=== PATIENT | female | born 1950 | race Caucasian/White ===

== ENCOUNTER → 2016-11-12 | Outpatient (CLI) | payer MEDICARE, BC | LOC: MC.RAD 08:47 | DX: Z12.31 Encounter for screening mammogram for malignant neoplasm of breast (principal); N63 Unspecified lump in breast ==

== ENCOUNTER → 2016-11-14 | Outpatient (CLI) | payer MEDICARE, BC | LOC: MC.RAD 09:45 | DX: N63 Unspecified lump in breast (principal) ==

== ENCOUNTER → 2017-05-26 | Outpatient (CLI) | payer MEDICARE, BC | LOC: MC.RAD 08:30 | DX: N63.20 Unspecified lump in the left breast, unspecified quadrant (principal); N60.02 Solitary cyst of left breast ==

== ENCOUNTER → 2018-03-02 | Outpatient (CLI) | payer MEDICARE, BC | LOC: COL.RAD 13:27 | DX: M18.12 Unilateral primary osteoarthritis of first carpometacarpal joint, left hand (principal) ==

== ENCOUNTER 2019-05-11 10:00 | Outpatient (RCR) | payer MEDICARE, BC ==
[~2019-05-11 10:00] MED LIST: ASPIRIN 81M81 MG/TA2 PO; BENTYL 20MG20 MG/TAB PO; DIOVAN/HCT 12.51 TA1 PO; ISOPTIN SR240 MG PO; LEXAPRO 10MG10 MG PO; PREMARIN0.45 MG PO; QUESTRAN4 GM/9 GM PO; ZOCOR 20MG20 MG PO
== END 2019-05-19 13:27 | disposition home or self-care (01) ==
LOC: WSPT 10:00
DX: G57.01 Lesion of sciatic nerve, right lower limb (principal)

== ENCOUNTER 2019-12-17 11:37 | Outpatient (RCR) | payer MEDICARE, BC ==
[~2019-12-17 11:37] MED LIST changes: +ALBUTEROL0.83 MG/ML; +LEVAQUIN 5500 MG/TA1 PO; +PREDNISONE20 MG PO; +PRILOTC PO; +PROVENTIL0.09 MG/A1 IH; +WELLBUTRIN XL300 M1 PO
== END 2019-12-26 | disposition home or self-care (01) ==
LOC: COL.CR
DX: I21.4 Non-ST elevation (NSTEMI) myocardial infarction (principal)

== ENCOUNTER 2020-07-01 14:51 | Emergency (ER) | payer MEDICARE, BC ==
[~2020-07-01] VITALS: Ht 162.6 cm; Wt 72.7 kg
[2020-07-01 15:13] VITALS: TEMP 98.3
[2020-07-01 16:58] VITALS: BP 139/74; PULSE 86
== END 2020-07-01 17:19 | disposition home or self-care (01) ==
LOC: COL.ER 14:51
DX: S00.03XA Contusion of scalp, initial encounter (principal); I25.10 Atherosclerotic heart disease of native coronary artery without angina pectoris; Z79.02 Long term (current) use of antithrombotics/antiplatelets; Z88.1 Allergy status to other antibiotic agents; Z87.891 Personal history of nicotine dependence; Z95.5 Presence of coronary angioplasty implant and graft; Z98.890 Other specified postprocedural states; W10.9XXA Fall (on) (from) unspecified stairs and steps, initial encounter

== ENCOUNTER → 2020-09-07 | Outpatient (CLI) | payer MEDICARE, BC | LOC: MC.RAD 10:45 | DX: Z12.31 Encounter for screening mammogram for malignant neoplasm of breast (principal) ==